=== PATIENT | female | born 1995 | race Hispanic/Latino ===

== ENCOUNTER 2017-08-05 14:32 | Emergency (ER) | payer SELFPAY ==
[~2017-08-05] VITALS: Ht 154.9 cm; Wt 106.8 kg
[2017-08-05 15:13] LABS: URINE BILIRUBIN - DIPSTICK NEGATIVE (NEGATIVE); URINE BLOOD DIPSTICK NEGATIVE (NEGATIVE); URINE CLARITY CLEAR; URINE COLOR YELLOW; URINE GLUCOSE - DIPSTICK NEGATIVE (NEGATIVE); URINE KETONE NEGATIVE (NEGATIVE); URINE LEUK ESTERASE NEGATIVE (NEGATIVE); URINE NITRITE - DIPSTICK NEGATIVE (Negative); URINE PH 7.5 (4.5-8.0); URINE PROTEIN - DIPSTICK NEGATIVE (NEG-TRACE); URINE UROBILINOGEN - DIPSTICK 0.2 E.U./dL (0.2)
[2017-08-05 15:18] LABS: HEMATOCRIT 42.7 % (37.0-47.0); HEMOGLOBIN 14.1 g/dl (12.0-16.0); IMMATURE GRANULOCYTES 0.4 % (0.0-1.0); MEAN CELL VOLUME 85.2 fL CALC (80.0-100.0); MEAN CORPUSCULAR HGB 28.1 pG CALC (26.0-32.0); NEUT# 9.08 thou/uL (2.00-7.15); RED BLOOD COUNT 5.01 mill/uL (4.20-5.60); RED CELL DISTRI WIDTH 13.1 % (11.5-15.5)
[2017-08-05 15:24] LABS: ALBUMIN 4.8 g/dL (3.2-5.0); ALKALINE PHOSPHATASE 72 u/l (38-126); AMYLASE 58 u/l (30-110); ANION GAP 22 (6-22 (CALC)); BILIRUBIN, TOTAL 0.8 mg/dL (0.0-1.4); BUN 12 mg/dL (7-17); BUN/CREATININE RATIO 25 (12-20 (CALC)); CARBON DIOXIDE 25 mmol/l (22-30); CHLORIDE 99 mmol/l (95-108); CREATININE 0.5 mg/dL (0.5-1.0); GFR > 60 ML/MIN (>=60 (CALC)); GFR FOR AFR.AMER. > 60 ML/MIN (>=60 (CALC)); LIPASE 112 u/l (23-300); POTASSIUM 4.5 mmol/l (3.5-5.1); SGOT/AST 57 u/l (14-36); SGPT/ALT 146 u/l (9-52); SODIUM 142 mmol/l (137-146); TOTAL PROTEIN 8.4 g/dL (6.3-8.2)
[2017-08-05 16:20] VITALS: BP 145/100
[2017-08-05] MEDS ORDERED: ONDANSETRON4 MG PO (16:28)
[2017-08-05] MEDS ORDERED: TRAMADOL HYDROC50 MG PO (16:28)
== END 2017-08-05 16:47 | disposition home or self-care (01) | DRG 392 ==
LOC: ED 14:32
DX: K29.70 Gastritis, unspecified, without bleeding (principal); K76.0 Fatty (change of) liver, not elsewhere classified; F10.11 Alcohol abuse, in remission; R10.11 Right upper quadrant pain; R10.13 Epigastric pain; R11.0 Nausea; K80.20 Calculus of gallbladder without cholecystitis without obstruction

== ENCOUNTER 2018-01-12 06:34 | Day surgery (SDC) | payer SELFPAY ==
[~2018-01-12 06:34] MED LIST: ONDANSETRON4 MG PO; TRAMADOL HYDROC50 MG PO
[2018-01-12] MEDS ORDERED: TORADOL PO (09:40)
[2018-01-12 09:59] VITALS: BP 111/86
== END 2018-01-12 10:15 | disposition home or self-care (01) | DRG 419 ==
LOC: ORM 06:34
PROVIDERS: ATTEND Surgery
PROC: 0FT44ZZ Resection of Gallbladder, Percutaneous Endoscopic Approach (ICD-10-PCS; principal; 2018-01-12)
DX: K80.10 Calculus of gallbladder with chronic cholecystitis without obstruction (principal)
CPT/HCPCS: J0131; J2270; J2710; Q9967